=== PATIENT | male | born 1960 | race Caucasian/White ===

== ENCOUNTER 2021-10-23 22:04 | Emergency (ER) | payer MEDICARE ==
[2021-10-24] MEDS ORDERED: DECADRON4 MG PO (00:16)
== END 2021-10-24 00:30 | disposition left against medical advice (07) ==
LOC: ER1 22:04
DX: U07.1 COVID-19 (principal); J44.9 Chronic obstructive pulmonary disease, unspecified; G89.29 Other chronic pain; E11.9 Type 2 diabetes mellitus without complications; I10 Essential (primary) hypertension; M10.9 Gout, unspecified; F17.210 Nicotine dependence, cigarettes, uncomplicated
CPT/HCPCS: 71045; 96361; 96374; 99283

== ENCOUNTER → 2021-10-23 | Outpatient (CLI) | payer MEDICARE ==
[~2021-10-23] MED LIST: DECADRON4 MG PO
== END ==
LOC: EROP 19:24 → ER1 19:24 → EDSTATUS 21:51
DX: U07.1 COVID-19 (principal); Z23 Encounter for immunization
CPT/HCPCS: 93005; 94664; M0222; Q0222